=== PATIENT | male | born 1970 ===

== ENCOUNTER 2016-10-19 22:06 | Emergency (ER) ==
[~2016-10-19] VITALS: Ht 180.3 cm; Wt 91.6 kg
[2016-10-19] MEDS ORDERED: CIAL5TAB PO (22:27)
== END 2016-10-20 02:24 | disposition left against medical advice (07) ==
LOC: M ED 22:06
DX: M25.569 Pain in unspecified knee (principal); Z53.29 Procedure and treatment not carried out because of patient's decision for other reasons